=== PATIENT | female | born 1930 | race Caucasian/White ===

== ENCOUNTER 2016-08-20 23:14 | Inpatient (IN) | payer MEDICARE, OTHER ==
[~2016-08-20] VITALS: Ht 160 cm; Wt 57.2 kg
[2016-08-20] MEDS ORDERED: ONDANSETRON HCL/PF 4 MG/2 ML VIAL ONE ×2 (23:29→23:47)
[2016-08-20] MEDS ORDERED: AMIODARONE 900 MG in IV D5W 500 ML IV ONE (23:30)
[2016-08-20] MEDS ORDERED: ENALAPRILAT DIHYD. (2.5MG/ML) 1.25 MG/ML VIAL IV ONE ×2 (23:30→23:46)
[2016-08-20] MEDS ORDERED: NITROGLYCERIN PACKET 1 GM PACKET TD ONE (23:30)
[2016-08-20] MEDS ORDERED: AMIODARONE 150 MG in IV D5W 100 ML IV ONE (23:30)
[2016-08-20] MEDS ORDERED: FUROSEMIDE 40 MG/4 ML VIAL IV ONE (23:30)
[2016-08-20] MEDS ORDERED: ONDANSETRON HCL/PF 4 MG/2 ML VIAL IVP ONE (23:30)
[2016-08-20] MEDS ORDERED: ALBUTEROL FS 2.5 MG/3 ML VIAL.NEB NEB ONE (23:30)
[2016-08-20] MEDS ORDERED: AMIODARONE 150 MG/3 ML VIAL IV ONE ×2 (23:46→23:53)
[2016-08-20] MEDS ORDERED: IV D5W 500 ML IV ONE (23:47)
[2016-08-20] MEDS ORDERED: IV D5W 100 ML IV ONE (23:47)
[2016-08-20] MEDS ORDERED: NITROGLYCERIN PACKET 1 GM PACKET ONE (23:47)
[2016-08-20] MEDS ORDERED: IV SET PRIMARY 1 EA INFUS.SET MC ONE (23:47)
[2016-08-20] MEDS ORDERED: IV SET PRIMARY PUMP SET 1 EA INFUS.SET MC ONE (23:48)
[2016-08-20] MEDS ORDERED: ALBUTEROL FS 2.5 MG/3 ML VIAL.NEB ONE (23:53)
[2016-08-21] MEDS ORDERED: BENZTROPINE MESYLATE (2MG/2ML) 2 MG/2 ML AMPUL IM ONE
[2016-08-21] MEDS ORDERED: METOCLOPRAMIDE HCL 10 MG/2 ML VIAL IV ONE
[2016-08-21 00:04] LABS: BASOPHILS # (AUTO) 0.1 /CMM (0.0-0.2); BASOPHILS % (AUTO) 0.7 % (0.0-2.0); DIFF TOTAL % 100 %; EOSINOPHILS # (AUTO) 0.2 /CMM (0.0-0.7); HEMATOCRIT 43 % (33-45); HEMOGLOBIN 14.2 g/dL (11.5-14.8); LYMPHOCYTES # (AUTO) 2.3 /CMM (0.8-4.8); LYMPHOCYTES % (AUTO) 19.6 % (20.0-44.0); MEAN CORPUSCULAR HEMOGLOBIN 33 PG (26.0-33.0); MEAN CORPUSCULAR HGB CONC 33 g/dl (31.0-36.0); MEAN CORPUSCULAR VOLUME 101 fL (82-100); MONOCYTES # (AUTO) 1.2 /CMM (0.1-1.30); MONOCYTES % (AUTO) 10.3 % (2.0-12.0); NEUTROPHILS # (AUTO) 7.8 /CMM (1.8-8.9); NEUTROPHILS % (AUTO) 67.4 % (43.0-81.0); PLATELET COUNT (AUTO) 77 /CMM (150-450); RED BLOOD CELL COUNT(AUTO) 4.25 MIL/uL (4.0-5.2); WHITE BLOOD COUNT (AUTO) 11.5 K/uL (4.3-11.0)
[2016-08-21 00:21] LABS: TROPONIN I < 0.017 ng/mL (0.00-0.056)
[2016-08-21 00:26] LABS: ANION GAP 18 (5-14); CALCIUM, SERUM 8.6 mg/dL (8.5-10.1); CARBON DIOXIDE 23 mmol/L (21-32); CHLORIDE 104 mmol/L (98-107); CREATININE 0.8 mg/dL (0.6-1.3); GLUCOSE 160 mg/dL (74-106); POTASSIUM 3.9 mmol/L (3.5-5.1); SODIUM SERUM 141 mmol/L (136-145); UREA NITROGEN, BLOOD 13 mg/dL (7-18)
[2016-08-21] MEDS ORDERED: METOCLOPRAMIDE HCL 10 MG/2 ML VIAL ONE (00:29)
[2016-08-21 00:30] LABS: LACTIC ACID 2.4 mmol/L (0.4-2.0)
[2016-08-21] MEDS ORDERED: BENZTROPINE MESYLATE (2MG/2ML) 2 MG/2 ML AMPUL ONE (00:30)
[2016-08-21 00:35] LABS: ALANINE AMINOTRANSFERASE 57 U/L (12-78); ALBUMIN 4.1 g/dL (3.4-5.0); ASPARTATE AMINOTRANSFERASE 54 U/L (15-37); BILIRUBIN,DIRECT 0.3 mg/dL (0.0-0.2); INDIRECT BILIRUBIN 0.7 mg/dL (0.0-1.1); TOTAL PROTEIN, SERUM 6.5 g/dL (6.4-8.2)
[2016-08-21 00:48] LABS: INR 1.17 (0.87-1.13); PROTHROMBIN TIME 12.7 SECS (9.5-12.7)
[2016-08-21 00:53] LABS: *LACTIC ACID REFLEX FLAG YES
[2016-08-21] MEDS ORDERED: FUROSEMIDE 40 MG/4 ML VIAL IV ONE (01:00)
[2016-08-21] MEDS ORDERED: FUROSEMIDE 100 MG/10 ML VIAL ONE (01:10)
[2016-08-21] MEDS ORDERED: ACETAMINOPHEN 325 MG TABLET PO PRN (03:00)
[2016-08-21] MEDS ORDERED: Z GUARD REMEDY 2 OZ OINT TP PRN (03:00)
[2016-08-21] MEDS ORDERED: HYDROCODONE/APAP 5/325MG 1 EACH TABLET PO PRN (03:00)
[2016-08-21] MEDS ORDERED: ZOLPIDEM TARTRATE 5 MG TABLET PO PRN (03:00)
[2016-08-21] MEDS ORDERED: MAGNESIUM HYDROXIDE 30 ML UDC PO PRN (03:00)
[2016-08-21] MEDS ORDERED: ENOXAPARIN SODIUM 40 MG/0.4 ML DISP.SYRIN SQ SCH (03:00)
[2016-08-21] MEDS ORDERED: MAG HYDROX/AL HYDROX/SIMETH 30 ML UDC PO PRN (03:00)
[2016-08-21] MEDS ORDERED: ONDANSETRON HCL/PF 4 MG/2 ML VIAL IVP PRN (03:00)
[2016-08-21 04:00] VITALS: BP 122/98
[2016-08-21 05:50] LABS: LYMPHOCYTES % (MANUAL) 17 % (16-48)
[2016-08-21 05:51] LABS: BAND % (MANUAL) 3 % (0.0-5.0); BASOPHILS % (MANUAL) 0 % (0.0-2.0); EOSINOPHILS % (MANUAL) 2 % (0-4); PLATELET ESTIMATE DECREASED
[2016-08-21 05:52] LABS: ANISOCYTOSIS 1+
[2016-08-21 07:36] LABS: HEMATOCRIT 37 % (33-45); HEMOGLOBIN 12.5 g/dL (11.5-14.8); MEAN CORPUSCULAR HEMOGLOBIN 34 PG (26.0-33.0); MEAN CORPUSCULAR HGB CONC 34 g/dl (31.0-36.0); MEAN CORPUSCULAR VOLUME 99 fL (82-100); PLATELET COUNT (AUTO) 64 /CMM (150-450); RED BLOOD CELL COUNT(AUTO) 3.72 MIL/uL (4.0-5.2); WHITE BLOOD COUNT (AUTO) 10.9 K/uL (4.3-11.0)
[2016-08-21 07:47] LABS: CALCIUM, SERUM 8.6 mg/dL (8.5-10.1); CREATININE 0.8 mg/dL (0.6-1.3); PHOSPHORUS 3.5 mg/dL (2.5-4.9); POTASSIUM 3.7 mmol/L (3.5-5.1)
[2016-08-21 08:00] VITALS: BP 130/68
[2016-08-21] MEDS: FUROSEMIDE 40 MG/4 ML VIAL IV SCH ×2 (09:56→18:02)
[2016-08-21] MEDS: PANTOPRAZOLE 40 MG VIAL IV SCH (09:56)
[2016-08-21 11:22] LABS: BAND % (MANUAL) 4 % (0.0-5.0); LYMPHOCYTES % (MANUAL) 7 % (16-48); PLATELET ESTIMATE DECREASED
[2016-08-21 11:23] LABS: ANISOCYTOSIS 1+
[2016-08-21 11:31] LABS: THYROID STIMULATING HORMONE 1.651 uIU/mL (0.358-3.74)
[2016-08-21] MEDS ORDERED: MOME17SP BNOSTRILS (11:38)
[2016-08-21] MEDS ORDERED: ESCI10TA PO (11:38)
[2016-08-21] MEDS ORDERED: METO25TA PO (11:38)
[2016-08-21] MEDS ORDERED: ANAS1TAB8 PO (11:38)
[2016-08-21] MEDS ORDERED: MONT10TA22 PO (11:38)
[2016-08-21] MEDS ORDERED: DILT-3 PO (11:38)
[2016-08-21] MEDS ORDERED: BENZ-13 PO (11:38)
[2016-08-21] MEDS ORDERED: BUDE10.2 IH (11:38)
[2016-08-21] MEDS ORDERED: CETI-102 PO (11:38)
[2016-08-21] MEDS ORDERED: ALPR0.5T PO (11:38)
[2016-08-21] MEDS ORDERED: FURO40TA5 PO (11:38)
[2016-08-21] MEDS ORDERED: LOSA50TA21 PO (11:38)
[2016-08-21] MEDS ORDERED: LATA2.5D7 EACHEYE (11:38)
[2016-08-21] MEDS ORDERED: POTA10TA15 PO (11:38)
[2016-08-21] MEDS ORDERED: LEVO75TA7 PO (11:38)
[2016-08-21] MEDS ORDERED: POLY17PO4 PO (11:38)
[2016-08-21] MEDS ORDERED: CLON0.2T PO (11:41)
[2016-08-21] MEDS ORDERED: DABI150C PO (11:41)
[2016-08-21] MEDS ORDERED: UMEC1BLS IH (11:41)
[2016-08-21 12:00] VITALS: BP 122/68
[2016-08-21] MEDS ORDERED: SECONDARY IV SET 1 EA INFUS.SET MC ONE (13:27)
[2016-08-21] MEDS ORDERED: IV SET PRIMARY PUMP SET 1 EA INFUS.SET MC ONE ×2 (13:27→13:45)
[2016-08-21] MEDS ORDERED: IV NS 0.9% 250 ML IV ONE (13:28)
[2016-08-21] MEDS: Magnesium 1GM/D5W 100ML PREMIX 100 ML IV SCH ×2 (13:31→15:00)
[2016-08-21 16:00] VITALS: BP 150/72
[2016-08-21] MEDS ORDERED: RIVAROXABAN 10 MG TABLET PO SCH (17:00)
[2016-08-21 20:00] VITALS: BP 163/95
[2016-08-21] MEDS ORDERED: AMIODARONE 900 MG in IV D5W 482 ML IV SCH (20:00)
[2016-08-21] MEDS ORDERED: DILTIAZEM HCL 25 MG IV IV PRN (20:00)
[2016-08-21] MEDS ORDERED: HEPARIN SODIUM, PORCINE 5000 UNITS/1 ML VIAL IV ONE (22:30)
[2016-08-21] MEDS ORDERED: IV D5W 250 ML IV ONE (23:16)
[2016-08-21] MEDS ORDERED: CEFTRIAXONE 1 G VIAL ONE (23:16)
[2016-08-21] MEDS ORDERED: IV D5W 50 ML IV ONE (23:16)
[2016-08-21] MEDS ORDERED: ALPRAZOLAM 0.5 MG TABLET ONE (23:21)
[2016-08-21] MEDS ORDERED: ALBUTEROL FS 2.5 MG/3 ML VIAL.NEB NEB PRN (23:30)
[2016-08-21] MEDS: CEFTRIAXONE 1 G in IV D5W 50 ML IV SCH (23:37)
[2016-08-21] MEDS: ALPRAZOLAM 0.5 MG TABLET PO PRN (23:37)
[2016-08-21] MEDS: METOPROLOL TARTRATE 50 MG TABLET PO SCH (23:38)
[2016-08-22] VITALS: BP 155/88
[2016-08-22 03:38] LABS: BASOPHILS # (AUTO) 0.1 /CMM (0.0-0.2); BASOPHILS % (AUTO) 0.8 % (0.0-2.0); DIFF TOTAL % 100 %; EOSINOPHILS # (AUTO) 0.1 /CMM (0.0-0.7); EOSINOPHILS % (AUTO) 1.1 % (0.0-6.0); HEMATOCRIT 37 % (33-45); HEMOGLOBIN 12.3 g/dL (11.5-14.8); LYMPHOCYTES # (AUTO) 1.3 /CMM (0.8-4.8); LYMPHOCYTES % (AUTO) 13.3 % (20.0-44.0); MEAN CORPUSCULAR HEMOGLOBIN 33 PG (26.0-33.0); MEAN CORPUSCULAR HGB CONC 33 g/dl (31.0-36.0); MEAN CORPUSCULAR VOLUME 99 fL (82-100); MONOCYTES % (AUTO) 30.4 % (2.0-12.0); NEUTROPHILS # (AUTO) 5.4 /CMM (1.8-8.9); NEUTROPHILS % (AUTO) 54.4 % (43.0-81.0); PLATELET COUNT (AUTO) 58 /CMM (150-450); RED BLOOD CELL COUNT(AUTO) 3.73 MIL/uL (4.0-5.2); WHITE BLOOD COUNT (AUTO) 9.9 K/uL (4.3-11.0)
[2016-08-22 03:53] LABS: CALCIUM, SERUM 8.8 mg/dL (8.5-10.1); CREATININE 0.6 mg/dL (0.6-1.3); POTASSIUM 3.7 mmol/L (3.5-5.1)
[2016-08-22 04:00] VITALS: BP 168/87
[2016-08-22] MEDS: METOPROLOL TARTRATE 50 MG TABLET PO SCH ×4 (05:13→23:24)
[2016-08-22 05:59] LABS: ANISOCYTOSIS 1+; BAND % (MANUAL) 3 % (0.0-5.0); BASOPHILS % (MANUAL) 0 % (0.0-2.0); EOSINOPHILS % (MANUAL) 0 % (0-4); LYMPHOCYTES % (MANUAL) 22 % (16-48); PLATELET ESTIMATE DECREASED
[2016-08-22 08:00] VITALS: BP 179/88
[2016-08-22] MEDS: cetrizine 10 MG TABLET PO SCH (09:00)
[2016-08-22] MEDS: MOMETASONE FUROATE NASAL SUSP 17 GM BOTTLE SCH (09:00)
[2016-08-22] MEDS: CLONIDINE HCL 0.1 MG TABLET PO SCH ×3 (09:06→20:58)
[2016-08-22] MEDS: DILTIAZEM HCL CD 240 MG PO SCH (09:06)
[2016-08-22] MEDS: LOSARTAN POTASSIUM 50 MG TABLET PO SCH (09:06)
[2016-08-22] MEDS: ESCITALOPRAM OXALATE (10 MG) 10 MG TABLET PO SCH (09:06)
[2016-08-22] MEDS: LEVOTHYROXINE SODIUM 75 MCG TABLET PO SCH (09:07)
[2016-08-22] MEDS: FUROSEMIDE 40 MG/4 ML VIAL IV SCH ×2 (09:07→17:38)
[2016-08-22] MEDS: PANTOPRAZOLE 40 MG VIAL IV SCH (09:07)
[2016-08-22] MEDS: POTASSIUM CHLORIDE 10 MEQ TABLET.SA PO SCH ×2 (09:07→20:57)
[2016-08-22] MEDS: DABIGATRAN ETEXILATE MESYLATE 150 MG CAPSULE PO SCH ×2 (09:08→20:59)
[2016-08-22] MEDS ORDERED: METOCLOPRAMIDE HCL 10 MG/2 ML VIAL IV ONE (10:30)
[2016-08-22] MEDS: ANASTROZOLE 1 MG TABLET PO SCH (10:34)
[2016-08-22] MEDS: BENZONATATE 100 MG CAPSULE PO SCH ×3 (10:35→17:38)
[2016-08-22] MEDS: LATANOPROST EYE DROP 0.005% 2.5 ML BOTTLE EACHEYE SCH (10:35)
[2016-08-22 12:00] VITALS: BP 99/59
[2016-08-22 16:00] VITALS: BP 124/74
[2016-08-22] MEDS: MONTELUKAST SODIUM (10MG) 10 MG TABLET PO SCH (17:38)
[2016-08-22 20:00] VITALS: BP 113/55
[2016-08-22] MEDS ORDERED: ALPRAZOLAM 0.25 MG TABLET ONE (23:10)
[2016-08-22] MEDS: ALPRAZOLAM 0.5 MG TABLET PO PRN (23:14)
[2016-08-22] MEDS: CEFTRIAXONE 1 G in IV D5W 50 ML IV SCH (23:15)
[2016-08-22] MEDS: AZITHROMYCIN 500 MG in IV D5W 250 ML IV SCH ×3 (23:15)
[2016-08-23] VITALS: BP_SYST 117; BP_SYST 83; BP_DIAS 50; BP_DIAS 69
[2016-08-23] MEDS ORDERED: SECONDARY IV SET 1 EA INFUS.SET MC ONE (00:07)
[2016-08-23 04:00] VITALS: BP 94/58
[2016-08-23] MEDS: METOPROLOL TARTRATE 50 MG TABLET PO SCH ×3 (06:00→21:46)
[2016-08-23 07:17] LABS: BASOPHILS # (AUTO) 0.1 /CMM (0.0-0.2); BASOPHILS % (AUTO) 2.1 % (0.0-2.0); DIFF TOTAL % 100 %; EOSINOPHILS # (AUTO) 0.2 /CMM (0.0-0.7); EOSINOPHILS % (AUTO) 3.9 % (0.0-6.0); HEMATOCRIT 31 % (33-45); HEMOGLOBIN 10.5 g/dL (11.5-14.8); LYMPHOCYTES # (AUTO) 1.3 /CMM (0.8-4.8); LYMPHOCYTES % (AUTO) 24.3 % (20.0-44.0); MEAN CORPUSCULAR HEMOGLOBIN 34 PG (26.0-33.0); MEAN CORPUSCULAR HGB CONC 34 g/dl (31.0-36.0); MEAN CORPUSCULAR VOLUME 99 fL (82-100); MONOCYTES # (AUTO) 1.4 /CMM (0.1-1.30); MONOCYTES % (AUTO) 27.5 % (2.0-12.0); NEUTROPHILS # (AUTO) 2.2 /CMM (1.8-8.9); NEUTROPHILS % (AUTO) 42.2 % (43.0-81.0); PLATELET COUNT (AUTO) 55 /CMM (150-450); RED BLOOD CELL COUNT(AUTO) 3.09 MIL/uL (4.0-5.2); WHITE BLOOD COUNT (AUTO) 5.2 K/uL (4.3-11.0)
[2016-08-23 08:00] VITALS: BP 108/58
[2016-08-23 08:01] LABS: CALCIUM, SERUM 8.6 mg/dL (8.5-10.1); CREATININE 0.8 mg/dL (0.6-1.3); POTASSIUM 3.4 mmol/L (3.5-5.1)
[2016-08-23 08:53] LABS: BAND % (MANUAL) 2 % (0.0-5.0); EOSINOPHILS % (MANUAL) 7 % (0-4); LYMPHOCYTES % (MANUAL) 21 % (16-48); PLATELET ESTIMATE DECREASED
[2016-08-23 08:54] LABS: ANISOCYTOSIS 1+; HYPOCHROMASIA 1+
[2016-08-23] MEDS: PANTOPRAZOLE 40 MG VIAL IV SCH (08:56)
[2016-08-23] MEDS: FUROSEMIDE 40 MG/4 ML VIAL IV SCH ×2 (08:56→16:45)
[2016-08-23] MEDS: DABIGATRAN ETEXILATE MESYLATE 150 MG CAPSULE PO SCH ×2 (08:57→20:46)
[2016-08-23] MEDS: LOSARTAN POTASSIUM 50 MG TABLET PO SCH (08:58)
[2016-08-23] MEDS: DILTIAZEM HCL CD 240 MG PO SCH (08:58)
[2016-08-23] MEDS: BENZONATATE 100 MG CAPSULE PO SCH ×3 (08:59→16:40)
[2016-08-23] MEDS: LEVOTHYROXINE SODIUM 75 MCG TABLET PO SCH (08:59)
[2016-08-23] MEDS: CLONIDINE HCL 0.1 MG TABLET PO SCH ×2 (08:59→20:45)
[2016-08-23] MEDS: POTASSIUM CHLORIDE 10 MEQ TABLET.SA PO SCH ×2 (08:59→20:45)
[2016-08-23] MEDS: ESCITALOPRAM OXALATE (10 MG) 10 MG TABLET PO SCH (08:59)
[2016-08-23] MEDS ORDERED: POTASSIUM CHLORIDE 20 MEQ TAB.PRT.SR PO ONE (09:00)
[2016-08-23] MEDS: cetrizine 10 MG TABLET PO SCH (09:00)
[2016-08-23] MEDS: ANASTROZOLE 1 MG TABLET PO SCH (09:17)
[2016-08-23] MEDS: MOMETASONE FUROATE NASAL SUSP 17 GM BOTTLE SCH (09:18)
[2016-08-23] MEDS: LATANOPROST EYE DROP 0.005% 2.5 ML BOTTLE EACHEYE SCH (10:26)
[2016-08-23] MEDS: ERYTHROMYCIN BASE OPHTH 3.5 GM TUBE EACHEYE SCH ×2 (10:26→20:48)
[2016-08-23 12:00] VITALS: BP 89/61
[2016-08-23] MEDS: methylPREDNISolone SOD SUCC 125 MG/2ML VIAL IV SCH ×2 (13:07→20:47)
[2016-08-23] MEDS: IPRATROPIUM NEB FS 0.5 MG/2.5 ML AMPUL.NEB NEB SCH ×3 (14:38→23:30)
[2016-08-23] MEDS: ALBUTEROL FS 2.5 MG/3 ML VIAL.NEB NEB SCH ×3 (14:38→23:30)
[2016-08-23] MEDS: MONTELUKAST SODIUM (10MG) 10 MG TABLET PO SCH (16:51)
[2016-08-23 20:00] VITALS: BP 106/48
[2016-08-23] MEDS: ALPRAZOLAM 0.5 MG TABLET PO PRN (22:33)
[2016-08-23] MEDS: CEFTRIAXONE 1 G in IV D5W 50 ML IV SCH (22:34)
[2016-08-23] MEDS: AZITHROMYCIN 500 MG in IV D5W 250 ML IV SCH (22:46)
[2016-08-24] MEDS: ALBUTEROL FS 2.5 MG/3 ML VIAL.NEB NEB SCH ×6 (03:17→23:30)
[2016-08-24] MEDS: IPRATROPIUM NEB FS 0.5 MG/2.5 ML AMPUL.NEB NEB SCH ×6 (03:17→23:30)
[2016-08-24 04:00] VITALS: BP 113/76
[2016-08-24 07:18] LABS: BASOPHILS % (AUTO) 0.3 % (0.0-2.0); DIFF TOTAL % 100 %; HEMATOCRIT 33 % (33-45); HEMOGLOBIN 11.2 g/dL (11.5-14.8); LYMPHOCYTES # (AUTO) 0.9 /CMM (0.8-4.8); LYMPHOCYTES % (AUTO) 25.3 % (20.0-44.0); MEAN CORPUSCULAR HEMOGLOBIN 33 PG (26.0-33.0); MEAN CORPUSCULAR HGB CONC 34 g/dl (31.0-36.0); MEAN CORPUSCULAR VOLUME 98 fL (82-100); MONOCYTES # (AUTO) 0.4 /CMM (0.1-1.30); MONOCYTES % (AUTO) 11.7 % (2.0-12.0); NEUTROPHILS # (AUTO) 2.2 /CMM (1.8-8.9); NEUTROPHILS % (AUTO) 61.7 % (43.0-81.0); PLATELET COUNT (AUTO) 63 /CMM (150-450); RED BLOOD CELL COUNT(AUTO) 3.34 MIL/uL (4.0-5.2); WHITE BLOOD COUNT (AUTO) 3.6 K/uL (4.3-11.0)
[2016-08-24 07:38] LABS: CREATININE 0.8 mg/dL (0.6-1.3); PHOSPHORUS 3.6 mg/dL (2.5-4.9); POTASSIUM 4.3 mmol/L (3.5-5.1)
[2016-08-24 08:00] VITALS: BP 107/80
[2016-08-24] MEDS: cetrizine 10 MG TABLET PO SCH (09:00)
[2016-08-24] MEDS: LATANOPROST EYE DROP 0.005% 2.5 ML BOTTLE EACHEYE SCH (09:00)
[2016-08-24] MEDS: MOMETASONE FUROATE NASAL SUSP 17 GM BOTTLE SCH (09:00)
[2016-08-24] MEDS: ERYTHROMYCIN BASE OPHTH 3.5 GM TUBE EACHEYE SCH ×2 (09:00→21:19)
[2016-08-24] MEDS: METOPROLOL TARTRATE 50 MG TABLET PO SCH ×2 (09:00→21:21)
[2016-08-24] MEDS: LOSARTAN POTASSIUM 50 MG TABLET PO SCH (09:00)
[2016-08-24] MEDS: CLONIDINE HCL 0.1 MG TABLET PO SCH ×2 (09:00→21:21)
[2016-08-24] MEDS: DILTIAZEM HCL CD 240 MG PO SCH (09:00)
[2016-08-24] MEDS: ANASTROZOLE 1 MG TABLET PO SCH (09:00)
[2016-08-24 09:12] LABS: EOSINOPHILS % (MANUAL) 1 % (0-4); LYMPHOCYTES % (MANUAL) 22 % (16-48)
[2016-08-24 09:13] LABS: ANISOCYTOSIS 1+; PLATELET ESTIMATE DECREASED
[2016-08-24] MEDS: LEVOTHYROXINE SODIUM 75 MCG TABLET PO SCH (09:37)
[2016-08-24] MEDS: POTASSIUM CHLORIDE 10 MEQ TABLET.SA PO SCH ×2 (09:37→21:20)
[2016-08-24] MEDS: BENZONATATE 100 MG CAPSULE PO SCH ×3 (09:37→19:00)
[2016-08-24] MEDS: ESCITALOPRAM OXALATE (10 MG) 10 MG TABLET PO SCH (09:38)
[2016-08-24] MEDS: DABIGATRAN ETEXILATE MESYLATE 150 MG CAPSULE PO SCH ×2 (09:44→21:20)
[2016-08-24] MEDS: POLYETHYLENE GLYCOL 3350 17 GM POWD.PACK PO PRN (09:54)
[2016-08-24] MEDS: PANTOPRAZOLE 40 MG VIAL IV SCH (10:17)
[2016-08-24] MEDS: FUROSEMIDE 40 MG/4 ML VIAL IV SCH (10:17)
[2016-08-24] MEDS: methylPREDNISolone SOD SUCC 125 MG/2ML VIAL IV SCH ×2 (10:17→19:03)
[2016-08-24 16:00] VITALS: BP 126/69
[2016-08-24] MEDS: MONTELUKAST SODIUM (10MG) 10 MG TABLET PO SCH (18:59)
[2016-08-24 20:00] VITALS: BP 139/60
[2016-08-24] MEDS: ALPRAZOLAM 0.5 MG TABLET PO PRN (21:50)
[2016-08-24] MEDS ORDERED: SECONDARY IV SET 1 EA INFUS.SET MC ONE (22:04)
[2016-08-24] MEDS: CEFTRIAXONE 1 G in IV D5W 50 ML IV SCH (22:32)
[2016-08-24] MEDS: AZITHROMYCIN 500 MG in IV D5W 250 ML IV SCH (23:25)
[2016-08-25] MEDS: ALBUTEROL FS 2.5 MG/3 ML VIAL.NEB NEB SCH ×3 (03:14→11:50)
[2016-08-25] MEDS: IPRATROPIUM NEB FS 0.5 MG/2.5 ML AMPUL.NEB NEB SCH ×3 (03:14→11:50)
[2016-08-25 04:00] VITALS: BP 123/46
[2016-08-25 08:00] VITALS: BP 117/72
[2016-08-25] MEDS: ERYTHROMYCIN BASE OPHTH 3.5 GM TUBE EACHEYE SCH (08:52)
[2016-08-25] MEDS: LATANOPROST EYE DROP 0.005% 2.5 ML BOTTLE EACHEYE SCH (08:52)
[2016-08-25] MEDS: PANTOPRAZOLE 40 MG VIAL IV SCH (08:52)
[2016-08-25] MEDS: ESCITALOPRAM OXALATE (10 MG) 10 MG TABLET PO SCH (08:53)
[2016-08-25] MEDS: POTASSIUM CHLORIDE 10 MEQ TABLET.SA PO SCH (08:53)
[2016-08-25] MEDS: methylPREDNISolone SOD SUCC 125 MG/2ML VIAL IV SCH (08:53)
[2016-08-25] MEDS: DILTIAZEM HCL CD 240 MG PO SCH (08:53)
[2016-08-25] MEDS: METOPROLOL TARTRATE 50 MG TABLET PO SCH (08:53)
[2016-08-25] MEDS: BENZONATATE 100 MG CAPSULE PO SCH (08:53)
[2016-08-25] MEDS: MOMETASONE FUROATE NASAL SUSP 17 GM BOTTLE SCH (08:54)
[2016-08-25] MEDS: LEVOTHYROXINE SODIUM 75 MCG TABLET PO SCH (08:54)
[2016-08-25] MEDS: LOSARTAN POTASSIUM 50 MG TABLET PO SCH (08:54)
[2016-08-25] MEDS: ANASTROZOLE 1 MG TABLET PO SCH (08:54)
[2016-08-25 08:55] VITALS: BP 117/72
[2016-08-25] MEDS: CLONIDINE HCL 0.1 MG TABLET PO SCH (08:55)
[2016-08-25] MEDS: DABIGATRAN ETEXILATE MESYLATE 150 MG CAPSULE PO SCH (08:59)
[2016-08-25] MEDS ORDERED: FUROSEMIDE 20 MG TABLET PO SCH (09:00)
[2016-08-25] MEDS: POLYETHYLENE GLYCOL 3350 17 GM POWD.PACK PO PRN (09:01)
[2016-08-25] MEDS ORDERED: PRED10TA PO (11:15)
[2016-08-25] MEDS ORDERED: ERYT3.5O9 EACHEYE (11:15)
[2016-08-25] MEDS ORDERED: Ipratropium Bromide NEB (11:15)
[2016-08-25] MEDS ORDERED: PRED50TA PO (11:15)
[2016-08-25] MEDS ORDERED: PRED20TA GT (11:15)
[2016-08-25] MEDS ORDERED: AZIT250T PO (11:15)
[2016-08-25] MEDS ORDERED: METO50TA3 PO (11:20)
[2016-08-25] MEDS ORDERED: FURO20TA4 PO (11:20)
[2016-08-25] MEDS ORDERED: AZITHROMYCIN 250 MG TABLET PO SCH (21:00)
== END 2016-08-25 13:06 | disposition home health service (06) | DRG 291 ==
LOC: ER 23:18 → TELE-TD 08-21 02:38 → TELE1 08-22 16:23 → MEDSG1 08-23 09:45
PROVIDERS: ADMIT Family Medicine; ATTEND Internal Medicine
DX: I11.0 Hypertensive heart disease with heart failure (principal); J96.01 Acute respiratory failure with hypoxia; J18.9 Pneumonia, unspecified organism; I26.99 Other pulmonary embolism without acute cor pulmonale; D68.59 Other primary thrombophilia; E87.2 Acidosis; J44.0 Chronic obstructive pulmonary disease with (acute) lower respiratory infection; J44.1 Chronic obstructive pulmonary disease with (acute) exacerbation; J45.901 Unspecified asthma with (acute) exacerbation; I48.91 Unspecified atrial fibrillation; I73.9 Peripheral vascular disease, unspecified; Z88.1 Allergy status to other antibiotic agents; Z88.5 Allergy status to narcotic agent; Z85.3 Personal history of malignant neoplasm of breast; Z85.118 Personal history of other malignant neoplasm of bronchus and lung; Z98.890 Other specified postprocedural states; E83.42 Hypomagnesemia; E03.9 Hypothyroidism, unspecified; E78.5 Hyperlipidemia, unspecified; I48.2 Chronic atrial fibrillation; H10.9 Unspecified conjunctivitis; J20.9 Acute bronchitis, unspecified; I50.32 Chronic diastolic (congestive) heart failure; Z87.01 Personal history of pneumonia (recurrent)
CPT/HCPCS: 36415; 71010-TC; 78582; 80048-TC; 80076-TC; 83605-TC; 83735-TC; 83880; 84100-TC; 84439-TC; 84443-TC; 84481; 84484-TC; 85025-TC; 85378-TC; 85730-TC; 87040-TC; 87081-TC; 93307-TC; 93970-TC; 94799-TC; 97001-TC; A4606; A6253; A9540; A9567; C9113; J0282; J0456; J0515; J0696; J1940; J2405; J2765; J2930; J3475; J3490; J7050; J7060; Z7610